=== PATIENT | male | born 1980 | race Caucasian/White ===

== ENCOUNTER 2022-09-10 17:17 | Emergency (ER) | payer BC, OTHER ==
[~2022-09-10] VITALS: Ht 177.8 cm; Wt 108.9 kg
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
--- NOTE | 2022-09-10 17:45 | NUR ---
TO CT SCAN OF ABDOMINE
[2022-09-10] MEDS ORDERED: IV NS 0.9% 1,000 ML BAG IV ONE (18:00)
--- NOTE | 2022-09-10 18:20 | NUR ---
UA SENT TO LAB
[2022-09-10 18:30] LABS: BILIRUBIN,URINE NEGATIVE (NEGATIVE); COLOR,URINE YELLOW (YELLOW); LEUKOCYTE ESTERASE ,URINE NEGATIVE (NEGATIVE); NITRITE, URINE NEGATIVE (NEGATIVE); PROTEIN,URINE NEGATIVE (NEGATIVE); UGLUCOSE NEGATIVE (NEGATIVE)
[2022-09-10 18:33] LABS: BASOPHILS % (AUTO) 0.8 % (0.0-2.0); EOSINOPHILS % (AUTO) 2.4 % (0.0-6.0); HEMATOCRIT 43 % (39-51); HEMOGLOBIN 14.5 g/dL (13.5-17.5); LYMPHOCYTES # (AUTO) 1.9 K/uL (0.8-4.8); LYMPHOCYTES % (AUTO) 37.7 % (20.0-44.0); MEAN CORPUSCULAR HGB CONC 34 g/dl (31.0-36.0); MEAN CORPUSCULAR VOLUME 86 fL (80-96); MONOCYTES # (AUTO) 0.7 K/uL (0.1-1.30); MONOCYTES % (AUTO) 13.5 % (2.0-12.0); NEUTROPHILS # (AUTO) 2.4 K/uL (1.8-8.9); NEUTROPHILS % (AUTO) 45.6 % (43.0-81.0); PLATELET COUNT (AUTO) 103 K/uL (150-450); RED BLOOD CELL COUNT(AUTO) 5.01 MIL/uL (4.5-6.0); WHITE BLOOD COUNT (AUTO) 5.2 K/uL (4.3-11.0)
[2022-09-10 18:43] LABS: CALCIUM, SERUM 8.9 mg/dL (8.5-10.1); CREATININE 0.9 mg/dL (0.6-1.3); POTASSIUM 3.9 mmol/L (3.5-5.1)
--- NOTE | 2022-09-10 19:05 | NUR ---
DR. JASMINE BACK SPOOKING WITH PT COOPRATIVE AND UNDERSTOOD
--- NOTE | 2022-09-10 19:15 | NUR ---
IV removed. Catheter intact and site benign. Pressure and 4x4 applied to site. No bleeding noted.
--- NOTE | 2022-09-10 19:19 | NUR ---
Patient discharged to home in stable condition. Written and verbal after care instructions given. Patient verbalizes understanding of instruction.
[2022-09-10 19:25] VITALS: BP 132/75
== END 2022-09-10 19:26 | disposition home or self-care (01) ==
LOC: ER 17:19
DX: R31.9 Hematuria, unspecified (principal); Z60.2 Problems related to living alone
CPT/HCPCS: 99284; 74176; 96360; 85025; 80048; 81003; 36415; 85730; J7030

== ENCOUNTER 2022-10-11 01:36 | Emergency (ER) | payer OTHER, BC ==
[~2022-10-11] VITALS: Ht 177.8 cm; Wt 113.4 kg
[2022-10-11 01:46] VITALS: BP 128/81
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
--- NOTE | 2022-10-11 01:52 | NUR ---
SEEN BY DR RIDER
[2022-10-11] MEDS ORDERED: AMOX/CLAVULANATE 875 MG TABLET ONE (01:54)
[2022-10-11] MEDS ORDERED: AMOX/CLAVULANATE 875 MG TABLET PO ONE (02:00)
--- NOTE | 2022-10-11 02:02 | NUR ---
MAMMOGRAPHY TECHNICIAN DRAW BLOOD FOR PT
[2022-10-11] MEDS ORDERED: AMOX-430 PO (02:08)
--- NOTE | 2022-10-11 02:11 | NUR ---
Patient discharged to home in stable condition. Written and verbal after care instructions given. Patient verbalizes understanding of instruction.
== END 2022-10-11 02:12 | disposition home or self-care (01) ==
LOC: ER 01:38
DX: S50.872A Other superficial bite of left forearm, initial encounter (principal); Z60.2 Problems related to living alone; Z79.899 Other long term (current) drug therapy; Y04.1XXA Assault by human bite, initial encounter; Y93.89 Activity, other specified; Y92.89 Other specified places as the place of occurrence of the external cause; Y99.8 Other external cause status
CPT/HCPCS: 36415; 86706; 86803; 87340; 87806